=== PATIENT | female | born 1955 | race African-American/Black ===

== ENCOUNTER 2016-12-10 19:12 | Emergency (ER) | payer MEDICAID, MEDICARE ==
[~2016-12-10] VITALS: Ht 170.2 cm; Wt 89.2 kg
[~2016-12-10 19:12] MED LIST: INSU100V8 SQ
[2016-12-10 19:13] VITALS: BP 134/88
== END 2016-12-10 21:26 | disposition home or self-care (01) ==
LOC: ED 20:50
DX: S09.90XA Unspecified injury of head, initial encounter (principal); E11.9 Type 2 diabetes mellitus without complications; V54.0XXA Driver of pick-up truck or van injured in collision with heavy transport vehicle or bus in nontraffic accident, initial encounter; Y92.9 Unspecified place or not applicable; Y93.89 Activity, other specified; Y99.8 Other external cause status
CPT/HCPCS: 70450; 72125

== ENCOUNTER 2016-12-22 12:29 | Emergency (ER) | payer MEDICARE, MEDICAID ==
[~2016-12-22] VITALS: Ht 170.2 cm; Wt 89.3 kg
[2016-12-22] MEDS ORDERED: LISI-424 PO (12:56)
[2016-12-22] MEDS ORDERED: SODIUM CHLORIDE 0.9% 1,000ML IVBOLUS ONE (13:30)
[2016-12-22] MEDS ORDERED: SODIUM CHLORIDE FLUSH 10ML SYR IVF ONE (13:30)
[2016-12-22] MEDS ORDERED: KETOROLAC 30 MG/1 ML ONE (13:57)
[2016-12-22] MEDS ORDERED: DIPHENHYDRAMINE 25 MG CAPSULE ONE (13:57)
[2016-12-22] MEDS ORDERED: METOCLOPRAMIDE 5 MG/ML, 2ML ONE (13:57)
[2016-12-22] MEDS ORDERED: KETOROLAC 30 MG/1 ML IVPush ONE (14:00)
[2016-12-22] MEDS ORDERED: DIPHENHYDRAMINE 25 MG CAPSULE PO ONE (14:00)
[2016-12-22] MEDS ORDERED: METOCLOPRAMIDE 5 MG/ML, 2ML IVPush ONE (14:00)
[2016-12-22] MEDS ORDERED: OXYcodone IR 5MG TABLET ONE (14:25)
[2016-12-22] MEDS ORDERED: OXYcodone 5 MG/5 ML ORAL.SOL UDC PO PRN (14:30)
[2016-12-22] MEDS ORDERED: OXYcodone IR 5MG TABLET PO PRN (14:30)
[2016-12-22 14:33] VITALS: BP 130/70
== END 2016-12-22 14:35 | disposition home or self-care (01) ==
LOC: ED 14:25
DX: S06.0X0A Concussion without loss of consciousness, initial encounter (principal); G44.319 Acute post-traumatic headache, not intractable; E11.9 Type 2 diabetes mellitus without complications; X58.XXXA Exposure to other specified factors, initial encounter; Y93.89 Activity, other specified; Y92.89 Other specified places as the place of occurrence of the external cause; Y99.9 Unspecified external cause status
CPT/HCPCS: 70450; 96360; 99284; J7030

== ENCOUNTER 2019-09-26 13:44 | Emergency (ER) | payer OTHER, MEDICARE ==
[~2019-09-26] VITALS: Ht 170.2 cm; Wt 88.5 kg
[~2019-09-26 13:44] MED LIST changes: +LISI-424 PO
[2019-09-26] MEDS ORDERED: OXYcodone/APAP 5/325MG TABLET ONE (14:14)
--- NOTE | 2019-09-26 14:15 | NUR ---
PT SITTING IN BED, TALKING WITH REGISTRATION, RESPIRATIONS EVEN AND UNLABORED, NO SIGNS OF DISTRESS.
[2019-09-26] MEDS ORDERED: OXYC10TA6 PO (14:21)
[2019-09-26] MEDS ORDERED: OXYcodone/APAP 10/325MG TABLET ONE (14:26)
[2019-09-26 14:30] VITALS: BP 151/94
[2019-09-26] MEDS ORDERED: OXYcodone/APAP 10/325MG TABLET PO ONE (14:30)
--- NOTE | 2019-09-26 15:04 | NUR ---
PT SITTING IN BED, DRESSED IN STREET CLOTHES, RESPIRATIONS EVEN AND UNLABORED, NO SIGNS OF DISTRESS AND STATES RELIEF FROM PAIN.
== END 2019-09-26 15:34 | disposition home or self-care (01) ==
LOC: ED 14:15
DX: M54.2 Cervicalgia (principal); E11.9 Type 2 diabetes mellitus without complications; F17.200 Nicotine dependence, unspecified, uncomplicated
CPT/HCPCS: 99283